=== PATIENT | female | born 1995 | race African-American/Black ===

== ENCOUNTER 2017-08-06 14:21 | Emergency (ER) | payer OTHER ==
[~2017-08-06] VITALS: Ht 165.1 cm; Wt 63.0 kg
[2017-08-06 14:25] VITALS: TEMP 37.9; Ht 165.1 cm; Wt 63.0 kg
[2017-08-06] MEDS ORDERED: ONDANSETRON INJ 2 MG/ML 2 ML VIAL IV STA (14:36)
[2017-08-06] MEDS ORDERED: SODIUM CHLORIDE 0.9% 1000ML 1,000 ML IV STA (14:36)
[2017-08-06] MEDS ORDERED: ACETAMINOPHEN 500 MG TAB PO STA ×2 (14:38→15:15)
[2017-08-06] MEDS ORDERED: ONDANSETRON 4MG OD TAB ONE (15:02)
[2017-08-06 15:46] LABS: INFLUENZA B ANTIGEN Neg for Influ B (NEG)
[2017-08-06] MEDS ORDERED: OSEL75CA12 PO (16:11)
[2017-08-06 16:20] VITALS: BP 116/68; PULSE 105; O2SAT 98
--- NOTE | 2017-08-06 18:23 | EMERGENCY ROOM VISIT NOTE ---
History Report prepared by Amee: Enrique Griffith Under the Supervision of: Dr. Ian Mistry M.D. First contact with patient: 14:27 Chief Complaint: FLU LIKE SX Stated Complaint: FLU, WEAKNESS, FEVER History of Present Illness The patient is a 22 year old female who presents to the Emergency Room with complaints of multiple flu-like symptoms that have persisted since yesterday. The patient states that she feels very weak currently. She also notes that she feels the need to vomit and gets nauseous after eating. There have not been any vomiting episodes. She has had URI congestion and a headache, but no cough. She also reports diffuse myalgias. The patient has a history of asthma, and has had some difficulty breathing over the past two days. She denies any diarrhea, hematochezia, or hematemesis. Source of History: patient Onset: Yesterday Position: head Quality: other (URI congestion) Timing: other (persisted) Associated Symptoms: + headache, + nausea, + weakness, No cough, No vomiting Review of Systems See HPI for pertinent positives and negatives. A total of ten systems were reviewed and were otherwise negative. Past Medical & Surgical none pertinent stated. Family History Patient reports no known family medical history. Social History Smoking Status: Never Smoker Marital Status: single Housing Status: lives with roommate Occupation Status: [employer] student Current/Historical Medications Scheduled Oseltamivir (Tamiflu), 75 MG PO BID Allergies Coded Allergies: No Known Allergies (Unverified , 08/06/17) Physical Exam Vital Signs Date Time Temp Pulse Resp B/P (MAP) Pulse Ox O2 Delivery O2 Flow Rate FiO2 08/06/17 16:20 105 18 116/68 98 08/06/17 15:09 102 18 137/84 97 Room Air 08/06/17 14:25 37.9 86 16 135/84 94 Room Air Physical Exam Physical Exam GENERAL: She is oriented to person, place, and time. She appears well- developed and well-nourished. She does not appear distressed. ____ HENT: Exam performed. Head: Normocephalic and atraumatic. Right Ear: External ear normal. No mastoid tenderness. Left Ear: External ear normal. No mastoid tenderness. Mouth/Throat: The oropharynx is clear and moist. No trismus in the jaw. No dental abscesses or uvula swelling. No oropharyngeal exudate or tonsillar abscesses. ____ EYES: Conjunctivae and EOM are normal. Pupils are equal, round, and reactive to light. Right eye exhibits no discharge. Left eye exhibits no discharge. No scleral icterus. ____ NECK: Normal range of motion. Neck supple. No JVD present. No spinous process tenderness present. No carotid bruit present. No rigidity. No tracheal deviation and normal range of motion present. No Brudzinski's sign and no Kernig 's sign noted. ____ CV: Normal rate, regular rhythm, normal heart sounds and intact distal pulses. There is no peripheral edema. Palpable radial pulses bue. ____ PULM/CHEST: Effort normal and breath sounds normal. No respiratory distress. No stridor. She has no wheezes. She has no rales. Chest Wall: She exhibits no tenderness. ____ ABD: The abdomen is soft. Bowel sounds are normal. She has no distension. No mass is present. There is no tenderness. There is no rebound, no guarding, no Monae's sign and no tenderness at McBurney's point. Rovsig negative MUSC/SKEL: Normal range of motion. There is no peripheral edema, tenderness or deformity. LYMPH: No cervical adenopathy. ____ NEURO: She is alert and oriented to person, place, and time. She has normal strength. No cranial nerve deficit or sensory deficit. Coordination and gait normal. GCS eye subscore is 4. GCS verbal subscore is 5. GCS motor subscore is 6. Cerebellar tests wnl. ____ SKIN: Skin is warm and dry. She is not diaphoretic. ____ PSYCH: She has a normal mood and affect. She behavior is normal. Judgment and thought content normal. ____ Medical Decision & Procedures Laboratory Results Test 08/06/17 15:11 Urine Color YELLOW Urine Appearance CLEAR (CLEAR) Urine pH 8.0 (4.5-7.5) Urine Specific [place] 1.008 (1.000-1.030) Urine Protein NEG (NEG) Urine Glucose (UA) NEG (NEG) Urine Ketones NEG (NEG) Urine Occult Blood 3+ (NEG) Urine Nitrite NEG (NEG) Urine Bilirubin NEG (NEG) Urine Urobilinogen NEG (NEG) Urine Leukocyte Esterase SMALL (NEG) Urine WBC (Auto) 1-5 /hpf (0-5) Urine RBC (Auto) 10-30 /hpf (0-4) Urine Hyaline Casts (Auto) 0 /lpf (0-5) Urine Epithelial Cells (Auto) 20-30 /lpf (0-5) Urine Bacteria (Auto) NEG (NEG) Urine Yeast (Auto) (NONE PRSENT) Urine Test NEG (NEG) Influenza Type A Antigen POS for Influ A (NEG) Influenza Type B Antigen Neg for Influ B (NEG) Laboratory results reviewed by me Medications Administered Medications (Trade) Dose Ordered Sig/Sony Route Start Time Stop Time Status Last Admin Dose Admin Ondansetron HCl (Zofran Odt) 4 mg STK-MED ONCE .ROUTE 08/06/17 15:02 08/06/17 15:03 DC 08/06/17 15:08 4 MG Acetaminophen (Tylenol Tab) 1,000 mg NOW STAT PO 08/06/17 15:15 08/06/17 15:17 DC 08/06/17 15:25 1,000 MG ED Course 1429: The patient was evaluated in room A4B. A complete history and physical exam was performed. 1436: Ordered Zofran 4 mg IV. 1515: Ordered Tylenol 1000 mg PO. 1552: Vitals stable. Influenza positive. Discharge with Tamiflu. DISCHARGE - Plan of care discussed with patient and questions answered. The patient was given both verbal and printed discharge instructions. The patient verbalized understanding and ability to comply. The patient is to seek outpatient follow up as noted in the discharge instructions. The patient verbalized understanding and ability to comply. The patient is discharged in stable condition. The patient was instructed to return for worsening symptoms. Medical Decision Vitals stable. Influenza positive. Discharge with Tamiflu. DISCHARGE - Plan of care discussed with patient and questions answered. The patient was given both verbal and printed discharge instructions. The patient verbalized understanding and ability to comply. The patient is to seek outpatient follow up as noted in the discharge instructions. The patient verbalized understanding and ability to comply. The patient is discharged in stable condition. The patient was instructed to return for worsening symptoms. Medication Reconcilliation Current Medication List: was personally reviewed by me Blood Pressure Screening Patient's blood pressure: Elevated blood pressure Blood pressure disposition: Elevated BP felt to be situational Impression Primary Impression: Influenza Scribe Attestation The scribe's documentation has been prepared under my direction and personally reviewed by me in its entirety. I confirm that the note above accurately reflects all work, treatment, procedures, and medical decision making performed by me. The chart was completed utilizing [employer] Speech voice recognition software. Grammatical errors, random word insertions, pronoun errors, and incomplete sentences are an occasional consequence of this system due to software limitations, ambient noise, and hardware issues. Any formal questions or concerns about the content, text, or information contained within the body of this dictation should be directly addressed to the physician for clarification. Departure Information Dispostion Home / Self-Care Prescriptions Oseltamivir (Tamiflu) 75 Mg Cap 75 MG PO BID for 5 Days, #10 CAP Prov: Ian Mistry M.D. 08/06/17 Referrals No Doctor, Assigned (PCP) Patient Instructions My [facility]
== END 2017-08-06 16:20 | disposition home or self-care (01) ==
LOC: C.EDB 14:25 → C.EDA 16:20
DX: J10.1 Influenza due to other identified influenza virus with other respiratory manifestations (principal)